=== PATIENT | male | born 1960 | race Two or more races ===

== ENCOUNTER 2022-02-07 01:45 | Emergency (ER) | payer MEDICAID ==
[~2022-02-07] VITALS: Ht 172.7 cm; Wt 83.9 kg
[2022-02-07] MEDS ORDERED: ONDANSETRON HCL/PF 4 MG/2 ML VIAL ONE (01:54)
[2022-02-07] MEDS ORDERED: DIAZEPAM 5 MG/ML 2 ML DISP.SYRIN ONE (02:00)
[2022-02-07] MEDS ORDERED: ONDANSETRON HCL/PF 4 MG/2 ML VIAL IVP ONE (02:00)
[2022-02-07] MEDS ORDERED: IV NS 0.9% 500 ML BAG IV ONE (02:00)
[2022-02-07] MEDS ORDERED: DIAZEPAM 5 MG/ML 2 ML DISP.SYRIN IV ONE (02:00)
--- NOTE | 2022-02-07 02:00 | NUR ---
BIBRA FROM HOME C/O DIZZINESS XFEW MINS +N/V ZOFRAN 4MG GIVEN LITHOGRAPHIC PRINTING MACHINIST. HX OF VERTIGO. PLACED COMFORTABLY IN BED. VITALS CHECKED.
--- NOTE | 2022-02-07 02:05 | NUR ---
ASPHALT TAR AND GRAVEL ROOFER AT BEDSIDE
[2022-02-07 02:15] LABS: BASOPHILS % (AUTO) 0.6 % (0.0-2.0); EOSINOPHILS % (AUTO) 1.3 % (0.0-6.0); HEMATOCRIT 42 % (39-51); HEMOGLOBIN 14.3 g/dL (13.5-17.5); LYMPHOCYTES # (AUTO) 3.9 K/uL (0.8-4.8); LYMPHOCYTES % (AUTO) 48.5 % (20.0-44.0); MEAN CORPUSCULAR HGB CONC 34 g/dl (31.0-36.0); MEAN CORPUSCULAR VOLUME 88 fL (80-96); MONOCYTES # (AUTO) 0.9 K/uL (0.1-1.30); MONOCYTES % (AUTO) 10.9 % (2.0-12.0); NEUTROPHILS # (AUTO) 3.1 K/uL (1.8-8.9); NEUTROPHILS % (AUTO) 38.7 % (43.0-81.0); PLATELET COUNT (AUTO) 268 K/uL (150-450)
--- NOTE | 2022-02-07 02:30 | NUR ---
CAME WITH IV CANNULA G18 ON LEFT HAND. PATIENT IS COMPLAINING OF DIZZINESS
--- NOTE | 2022-02-07 02:33 | NUR ---
PT WAS BROUGHT TO CT DEPT
[2022-02-07 02:47] LABS: CARBON DIOXIDE 29 mmol/L (21-32); CHLORIDE 101 mmol/L (98-107); CREATININE 1.3 mg/dL (0.6-1.3); GLUCOSE 178 mg/dL (74-106); POTASSIUM 3.5 mmol/L (3.5-5.1); SODIUM SERUM 141 mmol/L (136-145); UREA NITROGEN, BLOOD 18 mg/dL (7-18)
[2022-02-07 02:52] LABS: ALANINE AMINOTRANSFERASE 26 U/L (12-78); ALBUMIN 3.8 g/dL (3.4-5.0); ALKALINE PHOSPHATASE 61 U/L (46-116); ASPARTATE AMINOTRANSFERASE 16 U/L (15-37); BILIRUBIN,TOTAL 0.2 mg/dL (0.2-1.0); TOTAL PROTEIN, SERUM 7.6 g/dL (6.4-8.2)
[2022-02-07] MEDS ORDERED: MECLIZINE HCL 12.5 MG TABLET PO ONE (03:00)
[2022-02-07] MEDS ORDERED: MECLIZINE HCL 25 MG TABLET ONE (03:25)
--- NOTE | 2022-02-07 04:38 | NUR ---
[employer] SHOP ASSOCIATE AT BEDSIDE
--- NOTE | 2022-02-07 05:28 | NUR ---
COVID SWAB DONE AND SENT TO LAB
--- NOTE | 2022-02-07 05:43 | NUR ---
[facility]
--- NOTE | 2022-02-07 07:12 | NUR ---
CLINICALS FAXED TO [facility]. FAX#[phone].
--- NOTE | 2022-02-07 07:13 | NUR ---
AUTH# FOR TRANSPORT. [id number]
--- NOTE | 2022-02-07 09:24 | NUR ---
DAUGHTER GIA [phone]
--- NOTE | 2022-02-07 09:42 | NUR ---
[facility] CALLED AND PROVIDED BED [id number], NUMBER FOR REPORT IS [phone] AND REQUIRES ALS TRANSPORT.
--- NOTE | 2022-02-07 09:47 | NUR ---
CALLED [facility] FOR TRANSPORT TO [facility]. ETA 1200 OR SOONER.
[2022-02-07 10:15] VITALS: BP 135/71
--- NOTE | 2022-02-07 10:19 | NUR ---
report given to Nicole FONG to continue care.
--- NOTE | 2022-02-07 13:30 | NUR ---
Patient picked up by private ambulance going to [facility] in no distress. Denies any pain at this time.
== END 2022-02-07 14:26 | disposition short-term general hospital (02) ==
LOC: ER 01:49
DX: R42 Dizziness and giddiness (principal); Z20.822 Contact with and (suspected) exposure to COVID-19; I49.1 Atrial premature depolarization; E11.9 Type 2 diabetes mellitus without complications
CPT/HCPCS: 36415; 70450; 71045; 80048; 80076; 84484 ×3; 85025; 85730; 87081; 87426; 93005; 96374; 96375; 99285; C9803; J2405; J3360; J7040; J8597

== ENCOUNTER 2025-02-20 01:56 | Emergency (ER) | payer MEDICAID, OTHER ==
[~2025-02-20] VITALS: Ht 180.3 cm; Wt 93.0 kg
[2025-02-20] MEDS ORDERED: LIDOCAINE 2% JEL UROJET 10 ML MM ONE (02:13)
[2025-02-20 02:44] LABS: APPEARANCE,URINE CLEAR (CLEAR); BLOOD, URINE 3+ Ery/uL (NEGATIVE); LEUKOCYTE ESTERASE ,URINE NEGATIVE (NEGATIVE); NITRITE, URINE NEGATIVE (NEGATIVE); UGLUCOSE NEGATIVE (NEGATIVE)
[2025-02-20 03:04] LABS: ADD URINE CULTURE YES; SQUAMOUS EPITHELIAL CELL,UR Few /HPF (None Seen)
[2025-02-20 04:25] VITALS: BP 116/97; TEMP 98; O2SAT 95
== END 2025-02-20 04:26 | disposition home or self-care (01) ==
LOC: ER 01:58
DX: R33.9 Retention of urine, unspecified (principal); E11.9 Type 2 diabetes mellitus without complications; N40.1 Benign prostatic hyperplasia with lower urinary tract symptoms
CPT/HCPCS: 99284; 51702; 87086; 81001; J3490